=== PATIENT | female | born 1960 ===

== ENCOUNTER 2017-06-29 09:59 | Emergency (ER) | payer OTHER ==
[2017-06-29 11:01] VITALS: O2SAT 100
[2017-06-29] MEDS ORDERED: Sodium Chloride 0.9% 1,000 ML IV STA (11:09)
[2017-06-29 11:21] LABS: BASO % 0.4 % (0.0-2.0); EOS % 0.2 % (0.0-4.0); HEMATOCRIT 36.7 % (34.0-47.0); LYMPH # 0.8 K/uL (1.0-4.3); LYMPH % 7.9 % (20.0-40.0); MEAN CELL VOLUME 85.5 fl (81.0-99.0); MEAN CORPUSCULAR HEMOGLOBIN 29.1 pg (27.0-31.0); MEAN PLATELET VOLUME 7.6 fl (7.2-11.7); MONO # 0.3 K/uL (0.0-0.8); NEUT % 88.5 % (50.0-75.0); PLATELET COUNT 281 K/uL (130-400); RED CELL DISTRIBUTION WIDTH 13.1 % (11.5-14.5); WHITE BLOOD COUNT 10.1 K/uL (4.8-10.8)
[2017-06-29 11:53] LABS: ALB/GLOB RATIO 1.6 (1.0-2.1); ALKALINE PHOSPHATASE 92 U/L (38-126); ALT/SGPT 23 U/L (9-52); AST/SGOT 25 U/L (14-36); BILIRUBIN,TOTAL 0.5 mg/dl (0.2-1.3); BLOOD UREA NITROGEN 15 mg/dl (7-17); CALCIUM 9.4 mg/dL (8.4-10.2); CARBON DIOXIDE 21 mmol/L (22-30); CHLORIDE 110 mmol/L (98-107); GFR AFRICAN-AMERICAN > 60; GLUCOSE,RANDOM 117 mg/dL (65-105); POTASSIUM 3.4 MMOL/L (3.6-5.0); SODIUM 142 mmol/l (132-148); TOTAL PROTEIN 7.2 G/DL (6.3-8.2)
--- NOTE | 2017-06-29 11:58 | ED PDOC ---
Syncope/Near Syncope/Dizziness Time Seen by Provider: 06/29/17 11:00 Chief Complaint (Nursing): Dizziness/Lightheaded Chief Complaint (Provider): Dizziness and nausea History Per: Patient History/Exam Limitations: no limitations Onset/Duration Of Symptoms: Hrs Additional Complaint(s): Patient is a 57 y/o female with no significant past medical history presenting to the emergency department for dizziness, nausea, and epigastric pain that started this morning. Denies vomiting, palpitations, or other complaints. PCP: Dr. Moo Helm Past Medical History Reviewed: Historical Data, Nursing Documentation, Vital Signs Vital Signs: Last Vital Signs Temp 98.1 F 06/29/17 10:49 Pulse 63 06/29/17 10:49 Resp 19 06/29/17 10:49 BP 156/71 H 06/29/17 10:49 Pulse Ox 100 06/29/17 10:49 - Medical History PMH: No Chronic Diseases - Surgical History Surgical History: No Surg Hx - Family History Family History: States: Unknown Family Hx - Social History Current smoker - smoking cessation education provided: No Ex-Smoker (has not smoked in the last 12 months): No Alcohol: None Drugs: Denies - Home Medications Home Medications: Ambulatory Orders Medication Instructions Recorded Meclizine [Meclizine*] 25 mg PO Q8 #15 tab 06/29/17 Pantoprazole Sodium [Protonix] 40 mg PO DAILY #30 tablet. 06/29/17 - Allergies Allergies/Adverse Reactions: Allergies Allergy/AdvReac Type Severity Reaction Status Date / Time No Known Allergies Allergy Verified 06/29/17 10:49 Review of Systems ROS Statement: Except As Marked, All Systems Reviewed And Found Negative Cardiovascular: Negative for: Palpitations Gastrointestinal: Positive for: Nausea, Other (Epigastric pain). Negative for: Vomiting Neurological: Positive for: Dizziness Physical Exam - Reviewed Nursing Documentation Reviewed: Yes Vital Signs Reviewed: Yes - Physical Exam Appears: Positive for: Well, Non-toxic, No Acute Distress Head Exam: Positive for: ATRAUMATIC, NORMAL INSPECTION, NORMOCEPHALIC Skin: Positive for: Normal Color, Warm, Dry Eye Exam: Positive for: Normal appearance, PERRL Neck: Positive for: Normal, Painless ROM, Supple Cardiovascular/Chest: Positive for: Regular Rate, Rhythm. Negative for: Murmur Respiratory: Positive for: Normal Breath Sounds. Negative for: Accessory Muscle Use, Respiratory Distress Gastrointestinal/Abdominal: Positive for: Soft, Tenderness (epigastric) Back: Positive for: Normal Inspection Extremity: Positive for: Normal ROM. Negative for: Pedal Edema Neurologic/Psych: Positive for: Alert, Oriented (x3). Negative for: Motor/ Sensory Deficits - Laboratory Results Result Diagrams: 06/29/17 11:15 06/29/17 11:15 - ECG O2 Sat by Pulse Oximetry: 100 (RA) Pulse Ox Interpretation: Normal - Progress Re-evaluation Time: 12:54 Condition: Improved Medical Decision Making Medical Decision Making: Time: 11:08 Initial plan: EKG Labs Pepcid 20 mg IVP Antivert 25 mg PO Normal Saline 1 L IV Zofran 4 mg IVP Reevaluation Scribe Attestation: Documented by Shireen Das, acting as a scribe for Clint Curtis MD. Provider Scribe Attestation: All medical record entries made by the Scribe were at my direction and personally dictated by me. I have reviewed the chart and agree that the record accurately reflects my personal performance of the history, physical exam, medical decision making, and the department course for this patient. I have also personally directed, reviewed, and agree with the discharge instructions and disposition. Disposition - Clinical Impression Clinical Impression: Dizziness, Gastritis - Patient ED Disposition Is Patient to be Admitted: No Counseled Patient/Family Regarding: Studies Performed, Diagnosis, Need For Followup, Rx Given - Disposition [facility]errals: [facility]] Disposition: Routine/Home Disposition Time: 12:55 Condition: FAIR Prescriptions: Meclizine [Meclizine*] 25 mg PO Q8 #15 tab Pantoprazole Sodium [Protonix] 40 mg PO DAILY #30 tablet. Instructions: Gastritis (ED), Vertigo (ED) Forms: [employer] ([email or web address]) ([place]er) Print Language: TURKISH
[2017-06-29] MEDS ORDERED: Potassium Chloride 20 mEq ER Tab PO ONE ×2 (12:00→13:31)
[2017-06-29 12:39] LABS: BASOPHIL 1 % (0-2); NEUTROPHIL 88 % (42-75); TOTAL CELLS COUNTED 100
[2017-06-29 12:40] LABS: LARGE PLATELETS PRESENT
[2017-06-29 13:37] VITALS: BP 136/82; PULSE 60; RESP 18; TEMP 98
--- NOTE | 2017-06-30 10:57 | CARD ---
APPROVED REPORT EKG Measurement Heart [id number] <Conclusion> Sinus rhythm with occasional premature ventricular complexes Nonspecific ST and T wave abnormality Prolonged QT Abnormal ECG
== END 2017-06-29 13:53 | disposition home or self-care (01) ==
LOC: H.ER 09:59 → MERGE 09:59 → H.ER 13:53
DX: R42 Dizziness and giddiness (principal); K29.70 Gastritis, unspecified, without bleeding
CPT/HCPCS: 80053; 85025; 93005; 96374; 96375; 99285; J2405; J7040

== ENCOUNTER 2017-08-27 09:33 | Day surgery (SDC) | payer OTHER ==
[2017-08-27] MEDS ORDERED: Lactated Ringer's 500 ML IV ONE (09:46)
[2017-08-27 10:00] VITALS: RESP 14; TEMP 97; O2SAT 99
[2017-08-27] MEDS ORDERED: Propofol 10 mg/ml Inj (20 ML) ONE (10:59)
[2017-08-27] MEDS ORDERED: Lidocaine 2% MPF (5 ml) Inj ONE (11:02)
[2017-08-27 11:41] VITALS: BP 110/64; PULSE 52
== END 2017-08-27 12:37 | disposition home or self-care (01) ==
LOC: H.ENDO 09:33
PROVIDERS: ATTEND Internal Medicine Gastroenterology
DX: R13.10 Dysphagia, unspecified (principal); E78.5 Hyperlipidemia, unspecified; R10.9 Unspecified abdominal pain; K29.50 Unspecified chronic gastritis without bleeding
CPT/HCPCS: 43239; 88305; J2704; J7120